=== PATIENT | male | born 1950 | race Caucasian/White ===

== ENCOUNTER 2018-08-07 14:18 | Emergency (ER) | payer OTHER ==
[2018-08-07] MEDS ORDERED: ONDANSETRON 4 MG/2 ML VIAL ONE (14:41)
--- NOTE | 2018-08-07 14:56 | RAD REPORT ---
EXAM DESCRIPTION: CT - Head Brain Wo Cont - 08/07/2018 2:41 pm CLINICAL HISTORY: Seizure COMPARISON: None. TECHNIQUE: Axial 5 mm thick images of the head were obtained without IV contrast. All CT scans are performed using dose optimization technique as appropriate and may include automated exposure control or mA/KV adjustment according to patient size. FINDINGS: No intracranial hemorrhage, mass, edema or shift of mid-line structures. No acute infarcti on changes seen. No abnormal extra-axial fluid collections. Patient has a minimal atrophy and chronic ischemic pattern. Ventricles are in proportion to volume loss. Mastoid air cells and visualized portions of the paranasal sinuses are clear. No acute bony findings. IMPRESSION: Atrophy and chronic ischemic changes are present relatively mild. Chronic ischemic change can mask nonhemorrhagic CVA. If there is concern for acute stroke, MR imagin g could be performed.
[2018-08-07 14:57] LABS: Absolute Lymphocytes (CBC) 1.3 K/uL (0.7-4.9); Absolute Monocytes 0.4 K/uL (0.1-1.3); Absolute Neutrophil 3.7 K/uL (1.8-8.0); Basophils % 0.8 % (0-1.3); Eosinophils % 2.8 % (0-4.4); Hematocrit 42.6 % (39.6-49.0); MPV 8.2 fL (7.6-11.3); Monocytes % 6.3 % (3.3-12.3); RBC Red Blood Cell Count 4.81 M/uL (4.33-5.43)
[2018-08-07 15:00] LABS: Protime INR 1.08
[2018-08-07 15:19] LABS: ALT/SGPT 29 U/L (12-78); AST/SGOT 30 U/L (15-37); Albumin 4.1 g/dL (3.4-5.0); Alkaline Phosphatase 80 U/L (45-117); BUN Blood Urea Nitrogen 17 mg/dL (7-18); Bicarbonate 28 mmol/L (21-32); Bilirubin Direct 0.2 mg/dL (0-0.2); Bilirubin Total 0.7 mg/dL (0.2-1.0); Glucose Level 102 mg/dL (74-106); Magnesium 2.1 mg/dL (1.8-2.4); NT PRO-BNP 86 pg/mL (<125); Potassium 3.3 mmol/L (3.5-5.1); Protein, Total 7.5 g/dL (6.4-8.2); Sodium Level 142 mmol/L (136-145); Troponin (Emerg Dept Use Only) < 0.02 ng/mL (0.0-0.045)
[2018-08-07] MEDS ORDERED: FOSPHENYTOIN PE 1,000 MG in NA CHLORIDE 0.9% 100 ML IV ONE (17:00)
--- NOTE | 2018-08-07 17:23 | EKG ---
Test Date: 2018-08-07 Test Time: 14:22:33 Metal Bonding Helper: RADHA-Kayode MEASUREMENT RESULTS: Intervals: Rate: 70 MT: 198 QRSD: 170 QT: 472 QTc: 509 Naches: P: 59 MT: 198 QRS: 102 T: -24 INTERPRETIVE STATEMENTS: Normal sinus rhythm Rightward axis Left bundle branch block Abnormal ECG Compared to ECG 04/03/2002 17:23:00 no significant change from previous ECG Electronically Signed On 08-07-18 17:22:38 GENETICS NURSE by Srini Sanford
--- NOTE | 2018-08-07 17:41 | RAD REPORT ---
EXAM DESCRIPTION: MRI - Brain Wo Cont - 08/07/2018 5:12 pm CLINICAL HISTORY: Confusion/seizure COMPARISON: Head CT August 07, 2018 TECHNIQUE: Axial, sagittal, and coronal magnetic images of the brain were obtained. Contrast was not requested FINDINGS: No abnormal signal is present within the brain. Diffusion-weighted/ADC mapping does not reveal evidence of acute infarction. The ventricles are normal caliber. An extra-axial fluid collection is not present Parahippocampal gyri normal caliber and signal Fluid within the sinuses/mastoids is not seen IMPRESSION: Unremarkable unenhanced brain MRI
--- NOTE | 2018-08-07 18:03 | ER ---
Nurse's Notes [facility] Name: Jayjay Martins Jr Age: 67 yrs Sex: Male : 1950 Arrival Date: 08/07/2018 Time: 14:26 Bed 4 Private MD: Diagnosis: Epilepsy and recurrent seizures Presentation: 08/07 14:37 Presenting complaint: EMS states: Witnessed seizure, witnesses report he hit his head, jl7 pt denies any headache, no abrasions or swelling noted. Pt is A\T\O x 4 with intermittent short term memory loss. Transition of care: patient was not received from another setting of care. Onset of symptoms was August 07, 2018 at 14:00. Risk Assessment: Do you want to hurt yourself or someone else? Patient reports no desire to harm self or others. Initial Sepsis Screen: Does the patient meet any 2 criteria? No. Patient's initial sepsis screen is negative. Does the patient have a suspected source of infection? No. Patient's initial sepsis screen is negative. Care prior to arrival: IV initiated. 18 GA, in the right antecubital area. 14:37 Method Of Arrival: EMS: [facility] jl7 14:37 Acuity: MILLI 3 jl7 Triage Assessment: 14:41 General: Appears in no apparent distress. uncomfortable, Behavior is calm, cooperative, jl7 appropriate for age. Pain: Denies pain. EENT: No signs and/or symptoms were reported regarding the EENT system. Neuro: Level of Consciousness is awake, alert, obeys commands, confused, Oriented to person, place, time, situation, Hacksaw Inspector are equal bilaterally Moves all extremities. Full function Speech is normal, Facial symmetry appears normal. Cardiovascular: Patient's skin is warm and dry. Respiratory: Airway is patent Respiratory effort is even, unlabored, Respiratory pattern is regular, symmetrical. GI: Reports nausea. : No signs and/or symptoms were reported regarding the genitourinary system. Derm: Skin is pink, warm \T\ dry. Musculoskeletal: No signs and/or symptoms reported regarding the musculoskeletal system. Historical: - Allergies: 14:41 No Known Allergies; jl7 - Home Meds: 14:41 Dilantin Oral [Active]; jl7 - PMHx: 14:41 Seizures; jl7 - Immunization history:: Adult Immunizations up to date. - Social history:: Smoking status: Patient/guardian denies using tobacco. - Ebola Screening: : No symptoms or risks identified at this time. Screenin:40 Abuse screen: Denies threats or abuse. Denies injuries from another. Nutritional jl7 screening: No deficits noted. Tuberculosis screening: No symptoms or risk factors identified. Fall Risk IV access (20 points). Total Camejo Fall Scale indicates No Risk (0-24 pts). Assessment: 14:40 General: See triage assessment. jl7 16:00 Reassessment: Patient appears in no apparent distress at this time. No changes from [facility] previously documented assessment. Patient and/or family updated on plan of care and expected duration. Pain level reassessed. Patient is alert, oriented x 3, equal unlabored respirations, skin warm/dry/pink. 17:21 Reassessment: Patient appears in no apparent distress at this time. Patient and/or jl7 family updated on plan of care and expected duration. Pain level reassessed. Patient is alert, oriented x 3, equal unlabored respirations, skin warm/dry/pink. Patient denies pain at this time. Vital Signs: 14:41 BP 140 / 83; Pulse 69; Resp 16 S; Pulse Ox 100% on R/A; Weight 90.72 kg (R); Height 6 jl7 ft. 1 in. (185.42 cm) (R); Pain 0/10; 15:19 BP 130 / 86; Pulse 58; Resp 14 S; Pulse Ox 95% on R/A; jl7 16:23 BP 157 / 83; Pulse 52; Resp 16 S; Pulse Ox 97% on R/A; jl7 17:21 BP 138 / 72; Pulse 63; Resp 16 S; Pulse Ox 97% on R/A; Pain 0/10; jl7 18:15 BP 135 / 72; Pulse 56; Resp 16; Pulse Ox 100% ; jl7 14:41 Body Mass Index 26.39 (90.72 kg, 185.42 cm) 7 ED Course: 14:26 Patient arrived in ED. iw 14:29 Oskar Wilkinson MD is Attending Physician. kdr 14:30 Inserted saline lock: 20 gauge in left antecubital area, using aseptic technique. By gabbi Barrera RN. 14:35 EKG done, by medical service technician. reviewed by Oskar Wilkinson MD. dt2 14:37 Holly Long, RN is Primary Nurse. jl7 14:40 Triage completed. jl7 14:40 Patient has correct armband on for positive identification. Bed in low position. Call jl7 light in reach. Side rails up X2. panel monitor on. Pulse ox on. NIBP on. Warm blanket given. 14:41 Arm band placed on right wrist. jl7 14:42 CT Head Brain wo Cont In Process Unspecified. EDMS 14:45 Initial lab(s) drawn, by me, sent to lab. jp3 14:52 Dilantin Sent. jp3 14:53 Troponin (emerg Dept Use Only) Sent. jp3 14:53 Basic Metabolic Panel Sent. jp3 14:53 CBC with Diff Sent. jp3 14:53 LFT's Sent. jp3 14:53 Magnesium Sent. jp3 14:53 NT PRO-BNP Sent. jp3 14:53 PT-INR Sent. jp3 16:41 Patient moved to MRI via stretcher. em2 16:52 MRI - Brain Wo Cont In Process Unspecified. EDMS 18:19 No provider procedures requiring assistance completed. IV discontinued, intact, jl7 bleeding controlled, No redness/swelling at site. Pressure dressing applied. Administered Medications: 14:43 Drug: Zofran 4 mg Route: IVP; Site: left antecubital; jl7 14:53 Follow up: Response: No adverse reaction; Nausea is decreased jl7 16:22 Drug: CEREbyx 1 grams Route: IVPB; Site: left antecubital; jl7 16:37 Follow up: Response: No adverse reaction; IV Status: Completed infusion jl7 Outcome: 18:03 Discharge ordered by . kdr 18:19 Discharged to home ambulatory, with friend. jl7 18:19 Condition: stable 18:19 Discharge instructions given to patient, friend, Instructed on discharge instructions, follow up and referral plans. medication usage, Demonstrated understanding of instructions, follow-up care, medications, Prescriptions given X 1. 18:22 Patient left the ED. jl7 Signatures: Dispatcher [employer] [facility] Oskar Wilkinson MD MD kdr Williams, Irene, RN Isaias Grimes em2 Holly Long, HIEN STANFORD jl7 Soledad Montenegro dt2 Pisarski, Dallin jp3
--- NOTE | 2018-08-07 18:04 | EDPHYS ---
Physician Documentation [facility] Name: Jayjay Martins Jr Age: 67 yrs Sex: Male : 1950 Arrival Date: 08/07/2018 Time: 14:26 Bed 4 Private MD: ED Physician Oskar Wilkinson HPI: 08/07 18:04 This 67 yrs old Male presents to ER via EMS with complaints of Probable kdr Seizure. 18:04 The patient presents after having a single isolated seizure, that lasted 5 minute(s), kdr the episode(s) was witnessed, by a bystander. Character of seizure(s): Loss of consciousness: the patient experienced loss of consciousness, Motor activity: generalized, Incontinence: none, Apnea: the patient did not experience apnea, Circulation: the patient did not experience evidence of pulse disturbance. Seizure onset: just prior to arrival. Context: the seizure(s) was witnessed, by a bystander, occurred at a store, occurred while the patient was standing. Seizure Hx: Claims that last seizure was . Associated injury: The patient did not suffer any apparent associated injury. The patient has experienced similar episodes in the past, several times. The patient has not recently seen a physician. Historical: - Allergies: 14:41 No Known Allergies; jl7 - Home Meds: 14:41 Dilantin Oral [Active]; jl7 - PMHx: 14:41 Seizures; jl7 - Immunization history:: Adult Immunizations up to date. - Social history:: Smoking status: Patient/guardian denies using tobacco. - Ebola Screening: : No symptoms or risks identified at this time. ROS: 18:04 Constitutional: Negative for fever, chills, and weight loss, Eyes: Negative for injury, kdr pain, redness, and discharge, ENT: Negative for injury, pain, and discharge, Neck: Negative for injury, pain, and swelling, Cardiovascular: Negative for chest pain, palpitations, and edema, Respiratory: Negative for shortness of breath, cough, wheezing, and pleuritic chest pain, Abdomen/GI: Negative for abdominal pain, nausea, vomiting, diarrhea, and constipation, Back: Negative for injury and pain, : Negative for injury, bleeding, discharge, and swelling, MS/Extremity: Negative for injury and deformity, Skin: Negative for injury, rash, and discoloration, Psych: Negative for depression, anxiety, suicide ideation, homicidal ideation, and hallucinations, Allergy/Immunology: Negative for hives, rash, and allergies, Endocrine: Negative for neck swelling, polydipsia, polyuria, polyphagia, and marked weight changes, Hematologic/Lymphatic: Negative for swollen nodes, abnormal bleeding, and unusual bruising. 18:04 Neuro: Positive for loss of consciousness, seizure activity. Exam: 18:04 Constitutional: This is a well developed, well nourished patient who is awake, alert, kdr and in no acute distress. Head/Face: Normocephalic, atraumatic. Eyes: Pupils equal round and reactive to light, extra-ocular motions intact. Lids and lashes normal. Conjunctiva and sclera are non-icteric and not injected. Cornea within normal limits. Periorbital areas with no swelling, redness, or edema. Neck: Trachea midline, no thyromegaly or masses palpated, and no cervical lymphadenopathy. Supple, full range of motion without nuchal rigidity, or vertebral point tenderness. No Meningismus. Chest/axilla: Normal chest wall appearance and motion. Nontender with no deformity. No lesions are appreciated. Cardiovascular: Regular rate and rhythm with a normal S1 and S2. No gallops, murmurs, or rubs. Normal PMI, no JVD. No pulse deficits. Respiratory: Lungs have equal breath sounds bilaterally, clear to auscultation and percussion. No rales, rhonchi or wheezes noted. No increased work of breathing, no retractions or nasal flaring. Abdomen/GI: Soft, non-tender, with normal bowel sounds. No distension or tympany. No guarding or rebound. No evidence of tenderness throughout. Back: No spinal tenderness. No costovertebral tenderness. Full range of motion. Skin: Warm, dry with normal turgor. Normal color with no rashes, no lesions, and no evidence of cellulitis. MS/ Extremity: Pulses equal, no cyanosis. Neurovascular intact. Full, normal range of motion. Neuro: Awake and alert, GCS 15, oriented to person, place and situation. Cranial nerves II-XII grossly intact. Motor strength 5/5 in all extremities. Sensory grossly intact. Cerebellar exam normal. Gait not tested Psych: Awake, alert, with orientation to person, place and time. Behavior, mood, and affect are within normal limits. Vital Signs: 14:41 BP 140 / 83; Pulse 69; Resp 16 S; Pulse Ox 100% on R/A; Weight 90.72 kg (R); Height 6 jl7 ft. 1 in. (185.42 cm) (R); Pain 0/10; 15:19 BP 130 / 86; Pulse 58; Resp 14 S; Pulse Ox 95% on R/A; jl7 16:23 BP 157 / 83; Pulse 52; Resp 16 S; Pulse Ox 97% on R/A; jl7 17:21 BP 138 / 72; Pulse 63; Resp 16 S; Pulse Ox 97% on R/A; Pain 0/10; jl7 18:15 BP 135 / 72; Pulse 56; Resp 16; Pulse Ox 100% ; jl7 14:41 Body Mass Index 26.39 (90.72 kg, 185.42 cm) jl7 MDM: 18:03 Patient medically screened. kdr 18:04 Data reviewed: vital signs, nurses notes, lab test result(s), radiologic studies. kdr Counseling: I had a detailed discussion with the patient and/or guardian regarding: the historical points, exam findings, and any diagnostic results supporting the discharge/admit diagnosis, lab results, radiology results, the need for outpatient follow up. ED course: The patient was much improved and without any significant continuing illness or injury. 08/07 14:37 Order name: Basic Metabolic Panel; Complete Time: 15:39 kdr 08/07 14:37 Order name: CBC with Diff; Complete Time: 15:39 kdr 08/07 14:37 Order name: LFT's; Complete Time: 15:39 kdr 08/07 14:37 Order name: Magnesium; Complete Time: 15:39 kdr 08/07 14:37 Order name: NT PRO-BNP; Complete Time: 15:39 kdr 08/07 14:37 Order name: PT-INR; Complete Time: 15:39 kdr 08/07 14:28 Order name: CT Head Brain wo Cont; Complete Time: 15:39 iw 08/07 14:37 Order name: Troponin (emerg Dept Use Only); Complete Time: 15:39 kdr 08/07 14:37 Order name: EKG; Complete Time: 14:38 kdr 08/07 14:39 Order name: Dilantin; Complete Time: 15:45 kdr 08/07 15:45 Order name: MRI - Brain Wo Cont; Complete Time: 17:56 [facility] 08/07 14:37 Order name: Cardiac monitoring; Complete Time: 14:53 [facility] 08/07 14:37 Order name: EKG - Nurse/Tech; Complete Time: 14:53 [facility] 08/07 14:37 Order name: IV Saline Lock; Complete Time: 14:53 [facility] 08/07 14:37 Order name: Labs collected and sent; Complete Time: 14:53 [facility] 08/07 14:37 Order name: O2 Per Protocol; Complete Time: 14:53 [facility] 08/07 14:37 Order name: O2 Sat Monitoring; Complete Time: 14:53 [facility] Administered Medications: 14:43 Drug: Zofran 4 mg Route: IVP; Site: left antecubital; [facility] 14:53 Follow up: Response: No adverse reaction; Nausea is decreased [facility] 16:22 Drug: CEREbyx 1 grams Route: IVPB; Site: left antecubital; 7 16:37 Follow up: Response: No adverse reaction; IV Status: Completed infusion 7 Disposition: 08/07/18 18:03 Discharged to Home. Impression: Epilepsy and recurrent seizures. - Condition is Stable. - Discharge Instructions: Seizure, Adult, [id number]. - Prescriptions for Dilantin Kapseal 100 mg Oral Capsule - take 1 capsule by ORAL route every 8 hours; 30 capsule. - Medication Reconciliation Form, Thank You Letter form. - Follow up: Private Physician; When: 2 - 3 days; Reason: If symptoms return, Further diagnostic work-up, Recheck today's complaints, Continuance of care, Re-evaluation by your physician. - Problem is new. - Symptoms have improved. Signatures: Dispatcher [employer] [facility] Oskar Wilkinson MD MD kdr Holly Long RN RN jl7 Corrections: (The following items were deleted from the chart) 15:15 14:38 Chest Single View+[email or web address].[email or web address] ordered. [facility] 18:22 18:03 08/07/2018 18:03 Discharged to Home. Impression: Epilepsy and recurrent seizures. jl7 Condition is Stable. Forms are Medication Reconciliation Form, Thank You Letter, Antibiotic Education, Prescription Opioid Use. Follow up: Private Physician; When: 2 - 3 days; Reason: If symptoms return, Further diagnostic work-up, Recheck today's complaints, Continuance of care, Re-evaluation by your physician. Problem is new. Symptoms have improved. kdr
== END 2018-08-07 18:22 | disposition home or self-care (01) ==
LOC: ER 14:18
DX: G40.802 Other epilepsy, not intractable, without status epilepticus (principal)
CPT/HCPCS: 36415; 70450; 70551; 80048; 80076; 80185; 83735; 83880; 84484; 85025; 85610; 93005; 96374; 96375; 99285; J2405; Q2009